=== PATIENT | female | born 1980 | race Caucasian/White ===

== ENCOUNTER 2021-06-16 07:02 | Emergency (ER) | payer BC, SELFPAY ==
[2021-06-16] MEDS ORDERED: NA CHLORIDE 0.9% 1,000 ML ONE (07:44)
[2021-06-16 07:51] LABS: Absolute Lymphocytes (CBC) 1.9 K/uL (0.7-4.9); Hematocrit 34.5 % (36.0-45.0); Lymphocytes % 23.7 % (15.3-44.8); RBC Red Blood Cell Count 3.83 M/uL (3.86-4.86)
[2021-06-16 07:56] LABS: Protime INR 1.06
[2021-06-16 08:19] LABS: ALT/SGPT 16 U/L (12-78); AST/SGOT 19 U/L (15-37); Albumin 3.7 g/dL (3.4-5.0); Alkaline Phosphatase 60 U/L (45-117); BUN Blood Urea Nitrogen 11 mg/dL (7-18); Bicarbonate 24 mmol/L (21-32); Bilirubin Direct 0.1 mg/dL (0-0.2); Bilirubin Total 0.3 mg/dL (0.2-1.0); Glucose Level 86 mg/dL (74-106); Potassium 3.6 mmol/L (3.5-5.1); Protein, Total 6.9 g/dL (6.4-8.2); Sodium Level 143 mmol/L (136-145)
--- NOTE | 2021-06-16 09:10 | ER ---
Nurse's Notes [facility] Name: Brandi Pantoja Age: 40 yrs Sex: Female : 1980 Arrival Date: 06/16/2021 Time: 07:03 Bed 17 Private MD: Diagnosis: Alcohol abuse with intoxication;Adjustment disorder with depressed mood;Poisoning by unspecified drugs, medicaments and biological substances, undetermined, initial encounter Presentation: 06/16 07:04 Chief complaint: Patient states: SI- pt took about 25-30 temazepam with alcohol. 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 pt is more alert but anxious. Coronavirus screen: Vaccine status: Patient reports being unvaccinated. Ebola Screen: Patient denies travel to an Ebola-affected area in the 21 days before illness onset. Initial Sepsis Screen: Does the patient meet any 2 criteria? No. Patient's initial sepsis screen is negative. Does the patient have a suspected source of infection? No. Patient's initial sepsis screen is negative. Risk Assessment: Do you want to hurt yourself or someone else? Patient reports no desire to harm self or others. Onset of symptoms was June 16, 2021. 07:04 Method Of Arrival: EMS: [facility] 07:04 Acuity: KALA 2 [facility] Triage Assessment: 07:08 General: Appears in no apparent distress. Behavior is anxious. Pain: Denies pain. 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 - Social history:: Smoking status: Reported history of juuling and/or vaping. - Family history:: not pertinent. Screenin:13 Abuse screen: Denies threats or abuse. Denies injuries from another. Nutritional [facility] screening: No deficits noted. Tuberculosis screening: No symptoms or risk factors identified. Fall Risk None identified. Assessment: 08:13 General: Appears in no apparent distress. Behavior is agitated, crying. Pain: Denies estevez pain. 10:09 Reassessment: Pre MD to call spouse and if spouse agrees to warehouse order picker pt then pt can be estevez discharge. Overdose: 07:13 [place] Suicide Severity Screening: "In the past month, have you wished you were estevez or wished you could go to sleep and not wake up?" Patient responds "yes." Based off client's responses, additional C-SSRS screening questions required. "In the past month, have you actually had any thoughts of killing yourself?" Patient responds "yes." Based off client's responses, additional C-SSRS screening questions required. "In your lifetime, have you ever done anything, started to do anything, or prepared to do anything to end your life?" Patient responds "yes.". Vital Signs: 07:04 BP 108 / 74; Pulse 81; Resp 18; Pulse Ox 100% on R/A; Weight 55.34 kg; Height 5 ft. 4 [facility] in. (162.56 cm); 07:04 Body Mass Index 20.94 (55.34 kg, 162.56 cm) [facility] [place] Coma Score: 08:47 Eye Response: spontaneous(4). Verbal Response: oriented(5). Motor Response: obeys kimberly commands(6). Total: 15. ED Course: 07:03 Patient arrived in ED. wm 07:08 Triage completed. este[facility] 07:08 Arm band placed on right wrist. [facility] 07:13 Patient has correct armband on for positive identification. [facility] 07:13 No provider procedures requiring assistance completed. [facility] 07:14 Appears restless. Safety Checks: Personal items have been removed. [facility] 07:19 Kris Oleary MD is Attending Physician. kimberly 07:54 Acetaminophen Sent. este[facility] 07:54 Basic Metabolic Panel Sent. [facility] 07:54 CBC with Diff Sent. estevze 07:54 ETOH Level Sent. [facility] 07:54 Hepatic Function Sent. [facility] 07:54 PT-INR Sent. estevez 07:54 Ptt, Activated Sent. [facility] 07:54 Salicylate Sent. estevez 08:13 Inserted saline lock: 20 gauge in right antecubital area, using aseptic technique. pt estevez pulled out IV. 08:18 security- pt ia agitated, climbed over the rails, and pulled out IV. estevez 09:06 Ramírez Jiménez MD is Referral Physician. kimberly Administered Medications: 07:53 Drug: NS 0.9% 1000 ml Route: IV; Rate: 1 bolus; Site: right antecubital; este[facility] Outcome: : Discharge ordered by . kimberly 10: Discharged to home with family, spouse came to warehouse order picker pt estevez 10: Condition: stable 10: Discharge instructions given to family. 10:10 Patient left the ED. [facility] Signatures: Kris Oleary MD MD cha Marsh, Wendy wm Au-Stager, Heather, RN RN estevez Corrections: (The following items were deleted from the chart) 07:12 07:08 Home Meds: None; estevez estevez 07:12 07:08 PMHx: None; estevez estevez 07:55 07:54 URINE DRUG SCREEN+CHEM UR.LAB.BRZ drawn and sent. estevez EDMS 08:25 07:04 Chief complaint: Patient states: SI- pt took about 25-30 temazepam. ENGLISH L[employer]AGE [employer] TE[employer] EMS gave [facility] narcan. pt is more alert but anxious este[facility]
--- NOTE | 2021-06-16 09:10 | EDPHYS ---
Physician Documentation [facility] Name: Brandi Pantoja Age: 40 yrs Sex: Female : 1980 Arrival Date: 06/16/2021 Time: 07:03 Bed 17 Private MD: ED Physician Kris Oleary HPI: 06/16 08:47 This 40 yrs old Female presents to ER via EMS with complaints of Overdose. kimberly 08:47 The patient presents to the emergency department after a known overdose, that was kimberly intentional. Context: Method: the patient has a confirmed or suspected ingestion, temamapam. Associated signs and symptoms: Pertinent positives: depression, tearfulness. Severity of symptoms: At their worst the symptoms were mild in the emergency department the symptoms are unchanged. The patient has experienced similar episodes in the past, several times. 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 - Social history:: Smoking status: Reported history of juuling and/or vaping. - Family history:: not pertinent. ROS: 08:47 Constitutional: Negative for fever, chills, and weight loss, Eyes: Negative for injury, kimberly pain, redness, and discharge, ENT: Negative for injury, pain, and discharge, Neck: Negative for injury, pain, and swelling, Cardiovascular: Negative for chest pain, palpitations, and edema, Respiratory: Negative for shortness of breath, cough, wheezing, and pleuritic chest pain, Abdomen/GI: Negative for abdominal pain, nausea, vomiting, diarrhea, and constipation, Back: Negative for injury and pain, : Negative for injury, bleeding, discharge, and swelling, MS/Extremity: Negative for injury and deformity, Skin: Negative for injury, rash, and discoloration, Neuro: Negative for headache, weakness, numbness, tingling, and seizure, Allergy/Immunology: Negative for hives, rash, and allergies, Endocrine: Negative for neck swelling, polydipsia, polyuria, polyphagia, and marked weight changes, Hematologic/Lymphatic: Negative for swollen nodes, abnormal bleeding, and unusual bruising. 08:47 Psych: Positive for anxiety, depression. Exam: 08:47 Constitutional: This is a well developed, well nourished patient who is awake, alert, kimberly and in no acute distress. Head/Face: Normocephalic, atraumatic. Eyes: Pupils equal round and reactive to light, extra-ocular motions intact. Lids and lashes normal. Conjunctiva and sclera are non-icteric and not injected. Cornea within normal limits. Periorbital areas with no swelling, redness, or edema. ENT: Nares patent. No nasal discharge, no septal abnormalities noted. Tympanic membranes are normal and external auditory canals are clear. Oropharynx with no redness, swelling, or masses, exudates, or evidence of obstruction, uvula midline. Mucous membranes moist. Neck: Trachea midline, no thyromegaly or masses palpated, and no cervical lymphadenopathy. Supple, full range of motion without nuchal rigidity, or vertebral point tenderness. No Meningismus. Chest/axilla: Normal chest wall appearance and motion. Nontender with no deformity. No lesions are appreciated. Cardiovascular: Regular rate and rhythm with a normal S1 and S2. No gallops, murmurs, or rubs. Normal PMI, no JVD. No pulse deficits. Respiratory: Lungs have equal breath sounds bilaterally, clear to auscultation and percussion. No rales, rhonchi or wheezes noted. No increased work of breathing, no retractions or nasal flaring. Abdomen/GI: Soft, non-tender, with normal bowel sounds. No distension or tympany. No guarding or rebound. No evidence of tenderness throughout. Skin: Warm, dry with normal turgor. Normal color with no rashes, no lesions, and no evidence of cellulitis. MS/ Extremity: Pulses equal, no cyanosis. Neurovascular intact. Full, normal range of motion. Neuro: Awake and alert, GCS 15, oriented to person, place, time, and situation. Cranial nerves II-XII grossly intact. Motor strength 5/5 in all extremities. Sensory grossly intact. Cerebellar exam normal. Normal gait. 08:47 Psych: Behavior/mood is anxious, depressed, Affect is animated, Oriented to person, place, time, Patient has no thoughts/intents to harm self or others. 09:53 ECG was reviewed by the Attending Physician. [facility] Vital Signs: 07:04 BP 108 / 74; Pulse 81; Resp 18; Pulse Ox 100% on R/A; Weight 55.34 kg; Height 5 ft. 4 estevez in. (162.56 cm); 07:04 Body Mass Index 20.94 (55.34 kg, 162.56 cm) estevez [place] Coma Score: 08:47 Eye Response: spontaneous(4). Verbal Response: oriented(5). Motor Response: obeys [facility] commands(6). Total: 15. MDM: 07:19 Patient medically screened. [facility] 08:50 Differential diagnosis: intracranial hemorrhage, overdose, alcohol intoxication. Data [facility] reviewed: vital signs, nurses notes, lab test result(s), EKG, radiologic studies, CT scan, plain films. 06/16 07:27 Order name: Acetaminophen; Complete Time: 08:39 [facility] 06/16 07:27 Order name: Basic Metabolic Panel; Complete Time: 08:39 [facility] 06/16 07:27 Order name: CBC with Diff; Complete Time: 08:39 [facility] 06/16 07:27 Order name: ETOH Level; Complete Time: 08:39 [facility] 06/16 07:27 Order name: Hepatic Function; Complete Time: 08:39 [facility] 06/16 07:27 Order name: PT-INR; Complete Time: 08:39 [facility] 06/16 07:27 Order name: Ptt, Activated; Complete Time: 08:39 [facility] 06/16 07:27 Order name: Salicylate; Complete Time: 08:47 [facility] 06/16 07:27 Order name: EKG; Complete Time: 07:29 [facility] 06/16 07:27 Order name: EKG - Nurse/Tech; Complete Time: 07:49 [facility] 06/16 07:27 Order name: IV Saline Lock; Complete Time: 07:49 [facility] 06/16 07:27 Order name: Labs collected and sent; Complete Time: 07:49 [facility] 06/16 07:27 Order name: Suicide Precautions; Complete Time: 07:54 [facility] 06/16 07:27 Order name: Suicide Screening ([place]); Complete Time: 07:54 [facility] 06/16 07:27 Order name: Urine Dipstick-Ancillary (obtain specimen) [facility] 06/16 07:27 Order name: Urine Test (obtain specimen) [facility] EC:53 Rate is 73 beats/min. Rhythm is regular. QRS [place] is Normal. CT interval is normal. QRS kimber[place] interval is normal. QT interval is normal. No Q waves. T waves are Normal. No ST changes noted. Clinical impression: NSR w/ Non-specific ST/T Changes and No evidence of ischemia. Interpreted by me. Reviewed by me. Administered Medications: 07:53 Drug: NS 0.9% 1000 ml Route: IV; Rate: 1 bolus; Site: right antecubital; Disposition Summary: 06/16/21 09:09 Discharge Ordered Location: Home kimberly Problem: new kimberly Symptoms: have improved kimberly Condition: Stable kimberly Diagnosis - Alcohol abuse with intoxication kimberly - Adjustment disorder with depressed mood kimberly - Poisoning by unspecified drugs, medicaments and biological substances, kimberly undetermined, initial encounter Followup: kimberly - With: Private Physician - When: 2 - 3 days - Reason: Recheck today's complaints, Continuance of care, Re-evaluation by your physician Followup: kimberly - With: Ramírez Jiménez MD - When: 1 - 2 days - Reason: Recheck today's complaints, Continuance of care, Re-evaluation by your physician Discharge Instructions: - Discharge Summary Sheet kimberly - Alcohol Intoxication kimberly - Alcohol Use Disorder kimberly - Suicidal Feelings: How to Help Yourself kimberly - Helping Someone Who is Suicidal kimberly - Alcohol Intoxication, [place] kimberly - Intentional Drug Overdose kimberly - Major Depressive Disorder, Adult kimberly - Managing Depression, Adult kimberly Forms: - Medication Reconciliation Form kimberly - Thank You Letter kimberly - Antibiotic Education kimberly - Prescription Opioid Use kimberly Signatures: Dispatcher [employer] EDMS Kris Oleary MD MD cha Au-Stager, Heather, RN RN estevez Corrections: (The following items were deleted from the chart) 07:12 07:08 Home Meds: None; [facility] 07:12 07:08 PMHx: None; [facility] 07:55 07:27 URINE DRUG SCREEN+CHEM UR.LAB.BRZ ordered. EDPA EDMS
[2021-06-16 11:06] VITALS: BP 108/74; O2SAT 100
--- NOTE | 2021-06-17 11:36 | EKG ---
Test Date: 2021-06-16 Test Time: 07:45:59 [employer] Operations Coordinator: CLAUDIA MEASUREMENT RESULTS: Intervals: Rate: 73 NH: 180 QRSD: 64 QT: 406 QTc: 447 [place]: P: 67 NH: 180 QRS: 61 T: 47 INTERPRETIVE STATEMENTS: Normal sinus rhythm with sinus arrhythmia Anteroseptal infarct, age undetermined Abnormal ECG No previous ECG available for comparison Electronically Signed On 06-17-21 11:29:34 LAUNDRY WORKER by Wisam Tomlinson
== END 2021-06-16 10:10 | disposition home or self-care (01) ==
LOC: ER 07:02
DX: T42.4X4A Poisoning by benzodiazepines, undetermined, initial encounter (principal); F10.129 Alcohol abuse with intoxication, unspecified; F43.21 Adjustment disorder with depressed mood; F32.A Depression, unspecified
CPT/HCPCS: 93005; 85025; 80048; 36415; 80320; 80329 ×2; 85610; 80076; 85730; 99284; J7030